=== PATIENT | male | born 1945 | race Caucasian/White ===

== ENCOUNTER 2022-05-18 19:07 | Emergency (ER) | payer MEDICARE, OTHER, MEDICAID | END 2022-05-18 19:39 | disposition home or self-care (01) | LOC: FB.ED 19:07 | DX: R04.0 Epistaxis (principal); I25.10 Atherosclerotic heart disease of native coronary artery without angina pectoris; I48.91 Unspecified atrial fibrillation; E78.00 Pure hypercholesterolemia, unspecified; I10 Essential (primary) hypertension; E11.9 Type 2 diabetes mellitus without complications; Z86.73 Personal history of transient ischemic attack (TIA), and cerebral infarction without residual deficits; Z79.01 Long term (current) use of anticoagulants | CPT/HCPCS: 30901; 30903; 99281; 99283-25 ==

== ENCOUNTER 2022-06-15 20:20 | Emergency (ER) | payer MEDICARE, OTHER, MEDICAID ==
[2022-06-15] MEDS ORDERED: Sodium Chloride 0.9% 10 ML Syringe FLUSH PRN (20:21)
[2022-06-15 20:58] LABS: ESTIMATED GFR 27 mL/min (>60)
[2022-06-15] MEDS ORDERED: Potassium Chloride 20 MEQ Tab.ER PO ONE (21:12)
== END 2022-06-15 21:25 | disposition home or self-care (01) ==
LOC: FB.ED 20:20
DX: E87.6 Hypokalemia (principal); E87.1 Hypo-osmolality and hyponatremia; I10 Essential (primary) hypertension; E11.9 Type 2 diabetes mellitus without complications; Z79.899 Other long term (current) drug therapy; Z88.8 Allergy status to other drugs, medicaments and biological substances
CPT/HCPCS: 36415; 80053; 83735; 84484; 85025; 93005; 99283; A9270